=== PATIENT | female | born 1965 | race Caucasian/White ===

== ENCOUNTER 2020-05-30 13:52 | Outpatient (CLI) | payer OTHER ==
--- NOTE | 2020-05-30 14:36 | MMO ---
Left Breast MAMMO [facility] DDI LT+TYE. CLINICAL HISTORY: Patient is 54 years old and is seen for diagnostic exam. The patient has no family history of breast cancer. The patient has no personal history of cancer. VIEWS: The views performed were: left craniocaudal with tomosynthesis; left mediolateral oblique with tomosynthesis; and left mediolateral with tomosynthesis. FILMS COMPARED: The present examination has been compared to prior imaging studies performed at [facility] on 05/02/2020, and at [facility] on 03/01/2010 and 05/30/2020. This study has been interpreted with the assistance of computer-aided detection. MAMMOGRAM FINDINGS: The breast is heterogeneously dense, which could obscure a lesion on mammography. There is an irregular mass seen in the left breast at 12 o'clock. IMPRESSION: MASS IN THE LEFT BREAST IS SUSPICIOUS. AN ULTRASOUND-GUIDED BREAST BIOPSY IS RECOMMENDED. THE RESULTS OF THIS EXAM WERE SENT TO THE PATIENT. ACR BI-RADS Category 4 - Suspicious abnormality - biopsy should be considered D/W pt in person @ 2:30 pm MAMMOGRAPHY NOTE: 1. A negative mammogram report should not delay a biopsy if a dominant of clinically suspicious mass is present. 2. Approximately 10% to 15% of breast cancers are not detected by mammography. 3. Adenosis and dense breasts may obscure an underlying neoplasm. Reported by: JOSHUA WILSON MD Electonically Signed: [id number]
--- NOTE | 2020-05-30 15:26 | ULT ---
LEFT BREAST ULTRASOUND: 05/30/20 HISTORY: Abnormal mammogram of 05/02/20. FINDINGS: Correlation is made with mammograms of 05/02/20 and today. Sonographic evaluation of the cortical portion of the left breast demonstrates a 1 cm shadowing irreg ular solid mass 3 cm from the nipple, corresponding to the mammographic finding. US of the right axilla shows no abnormality. IMPRESSION: BI-RADS 4: Suspicious Abnormality - Biopsy Should Be Considered Usually requires biopsy Ultrasound guided biopsy is recommended. Discussed in person with the patient at 2:30 p.m. POS: OFF
== END 2020-05-30 13:53 | disposition home or self-care (01) ==
LOC: BICMAMMO 13:52
PROVIDERS: ATTEND Obstetrics & Gynecology
DX: R92.8 Other abnormal and inconclusive findings on diagnostic imaging of breast (principal)
CPT/HCPCS: G0279

== ENCOUNTER → 2020-06-20 | Day surgery (SDC) | payer OTHER ==
--- NOTE | 2020-06-20 13:33 | MMO ---
FILMS COMPARED: The present examination has been compared to prior imaging studies performed at [facility] on 05/02/2020, and at [facility] on 03/01/2010 and 05/30/2020. MAMMOGRAM FINDINGS: Left biopsy clip is noted slightly medial to the mass. IMPRESSION: FINDING IN THE LEFT BREAST IS CONFIRMED UTILIZING POST PROCEDURE MAMMOGRAM. Reported by: JOSHUA WILSON MD Electonically Signed: [id number]
--- NOTE | 2020-06-20 13:58 | ULT ---
Left breast mass biopsy sonographic guided HISTORY: Left breast mass. Upper inner quadrant. FINDINGS: After explaining the procedure and answering all questions, the hypoechoic mass at the 12:0 0 position right breast was visualized. Sterile technique, buffered local anesthesia, sonographic guidance, and a medial approach were used t o carefully advance a 14-gauge core biopsy needle to the level of the mass. A total of 2 samples were obtained and eventually submitted to pathology for evaluation. Localization clip was placed in the biopsy bed under sonographic control, placing the clip immediatel y medial to the mass. Patient tolerated the procedure well and was eventually dismissed in good condition. IMPRESSION : Technically successful sonographic guided biopsy left breast mass.
== END ==
LOC: BICULT 12:41
PROVIDERS: ATTEND Obstetrics & Gynecology
PROC: 0H9U3ZX Drainage of Left Breast, Percutaneous Approach, Diagnostic (ICD-10-PCS; principal; 2020-06-20)
DX: C50.212 Malignant neoplasm of upper-inner quadrant of left female breast (principal); Z17.0 Estrogen receptor positive status [ER+]
CPT/HCPCS: 19083; 88305; 88341; 88342

== ENCOUNTER 2020-09-25 12:22 | Outpatient (CLI) | payer OTHER ==
[2020-09-25 13:51] LABS: #Eosinphils 0.2 10x3/uL (0.0-0.5); #Monocytes 0.4 10x3/uL (0.0-1.1); #Neutrophils 1.9 10x3/uL (1.5-8.4); %Basophils 0.8 % (0.0-2.0); %Eosinophils 5.7 % (0.0-6.0); %Lymphocytes 35.1 % (18.0-47.0); %Monocytes 9.3 % (0.0-10.0); %Neutrophils 48.8 % (40.0-75.0); Hemoglobin 13.4 g/dL (12.0-15.5); Mean Corpuscular HGB CONC 30.9 g/dL (32.0-36.0); Mean Corpuscular Hemoglobin 28.8 pg (27.0-33.0); Mean Corpuscular Volume 92.9 fl (81.6-98.3); Mean Platelet Volume 10.8 fl (7.4-10.4); Platelet Count 261 10x3/uL (150-450); RBC Distribution Width 12.9 % (11.5-14.5); Red Blood Cell (RBC) Count 4.66 10x6/uL (3.90-5.03); White Blood Cell (WBC) Count 3.9 10x3/uL (3.5-10.5)
[2020-09-25 14:11] LABS: Anion Gap 14 mmol/L (10-20); BUN (Urea Nitrogen) 8 mg/dL (9.8-20.1); Calc. Creatinine Clearance 0 mL/min (70-130); Calcium 9.6 mg/dL (7.8-10.44); Carbon Dioxide 28 mmol/L (22-29); Chloride 104 mmol/L (98-107); Glucose 79 mg/dL (70-105); Potassium 5.1 mmol/L (3.5-5.1); Sodium 141 mmol/L (136-145)
[2020-09-26 01:55] LABS: SARS-CoV-2 PCR by NAA Not Detected (NotDetected)
== END 2020-09-25 12:23 | disposition home or self-care (01) ==
LOC: LABBT 12:22
PROVIDERS: ATTEND Specialist
DX: Z01.818 Encounter for other preprocedural examination (principal); C50.912 Malignant neoplasm of unspecified site of left female breast; Z20.822 Contact with and (suspected) exposure to COVID-19
CPT/HCPCS: 80048; 85025; 87635; 93005; 93010; U0003; U0005

== ENCOUNTER 2020-09-28 07:34 | Day surgery (SDC) | payer OTHER ==
[2020-09-27 11:50] VITALS: BMI 21.1
[2020-09-28] MEDS ORDERED: Ketorolac Tromethamine 30 MG/ML VIAL ONE (08:43)
[2020-09-28] MEDS ORDERED: Acetaminophen 500 MG TAB ONE (08:43)
[2020-09-28] MEDS ORDERED: Metoprolol Tartrate 5 MG/5 ML VIAL ONE (09:30)
[2020-09-28] MEDS ORDERED: Metoclopramide HCl 10 MG/2 ML VIAL ONE (09:30)
[2020-09-28] MEDS ORDERED: ePHEDrine 50 MG/ML VIAL ONE (09:30)
[2020-09-28] MEDS ORDERED: Lidocaine 1% PF 5 ML VIAL ONE (09:30)
[2020-09-28] MEDS ORDERED: Ondansetron PF 4 MG/2 ML Vial ONE (09:30)
[2020-09-28] MEDS ORDERED: PROPOFOL 200 MG/20 ML VIAL ONE (09:30)
[2020-09-28] MEDS ORDERED: Dexamethasone 20 MG/5 ML VIAL ONE (09:30)
[2020-09-28] MEDS ORDERED: PHENYLEPHRINE-NS 100 MCG/ML 10 ML SYRINGE ONE (09:30)
[2020-09-28] MEDS ORDERED: Midazolam HCl 2 mg/2 ml Vial ONE ×2 (10:24→12:47)
[2020-09-28] MEDS ORDERED: Isosulfan Blue 50 MG/5 ML VIAL ONE (12:25)
[2020-09-28] MEDS ORDERED: Lidocaine 1% w/Epinephrine 1:100K 20 ML VIAL ONE (12:25)
[2020-09-28] MEDS ORDERED: Bupivacaine 0.25% HCL 30 ML VIAL ONE (12:25)
[2020-09-28] MEDS ORDERED: Famotidine/PF 20 mg/2ml Vial ONE (12:38)
[2020-09-28] MEDS ORDERED: Fentanyl 100 MCG/2 ML VIAL ONE (12:47)
[2020-09-28] MEDS ORDERED: Phenylephrine 10 MG/ML VIAL ONE (14:53)
== END 2020-09-28 16:40 | disposition home or self-care (01) ==
LOC: SDC 07:34
PROVIDERS: ATTEND Specialist
PROC: 0HBU0ZZ Excision of Left Breast, Open Approach (ICD-10-PCS; principal; 2020-09-28)
PROC: 07B60ZX Excision of Left Axillary Lymphatic, Open Approach, Diagnostic (ICD-10-PCS; principal; 2020-09-28)
DX: C50.412 Malignant neoplasm of upper-outer quadrant of left female breast (principal); C77.3 Secondary and unspecified malignant neoplasm of axilla and upper limb lymph nodes; Z17.0 Estrogen receptor positive status [ER+]
CPT/HCPCS: 76098; 78195; 88307; 88342; 93005; 93010; A9541; J0690; J1100; J1885; J2250; J2370; J2405; J2704; J2765; J3010; J3490; Q9968; S0020; S0028

== ENCOUNTER 2020-10-11 09:36 | Outpatient (CLI) | payer OTHER ==
[2020-10-11 22:06] LABS: SARS-CoV-2 PCR by NAA Not Detected (NotDetected)
== END 2020-10-11 09:37 | disposition home or self-care (01) ==
LOC: LABBT 09:36
PROVIDERS: ATTEND Specialist
DX: C50.912 Malignant neoplasm of unspecified site of left female breast (principal); Z20.822 Contact with and (suspected) exposure to COVID-19
CPT/HCPCS: 87635; U0003; U0005

== ENCOUNTER 2020-10-16 10:33 | Day surgery (SDC) | payer OTHER ==
[2020-10-12 11:17] VITALS: BMI 21.0
[2020-10-16] MEDS ORDERED: Fentanyl 100 MCG/2 ML VIAL ONE (10:41)
[2020-10-16] MEDS ORDERED: Ketorolac Tromethamine 30 MG/ML VIAL ONE (11:37)
[2020-10-16] MEDS ORDERED: Acetaminophen 500 MG TAB ONE (11:37)
[2020-10-16] MEDS ORDERED: Lidocaine 1% w/Epinephrine 1:100K 20 ML VIAL ONE (12:05)
[2020-10-16] MEDS ORDERED: Bupivacaine 0.25% HCL 30 ML VIAL ONE (12:05)
[2020-10-16] MEDS ORDERED: Lidocaine 1% PF 5 ML VIAL ONE (13:32)
[2020-10-16] MEDS ORDERED: PROPOFOL 200 MG/20 ML VIAL ONE (13:32)
[2020-10-16] MEDS ORDERED: Dexamethasone 20 MG/5 ML VIAL ONE (13:32)
[2020-10-16] MEDS ORDERED: PHENYLEPHRINE-NS 100 MCG/ML 10 ML SYRINGE ONE ×2 (13:32→14:11)
[2020-10-16] MEDS ORDERED: Glycopyrrolate 0.2 MG/ML 5 ML SYRINGE ONE (13:32)
[2020-10-16] MEDS ORDERED: ePHEDrine 50 MG/ML VIAL ONE (13:32)
[2020-10-16] MEDS ORDERED: Ondansetron PF 4 MG/2 ML Vial ONE (13:32)
[2020-10-16] MEDS ORDERED: HYDROcodone/Acetaminophen 5/325 mg Tablet ONE (15:43)
== END 2020-10-16 15:52 | disposition home or self-care (01) ==
LOC: SDC 10:33
PROVIDERS: ATTEND Specialist
PROC: 0HBU0ZZ Excision of Left Breast, Open Approach (ICD-10-PCS; principal; 2020-10-16)
DX: D05.12 Intraductal carcinoma in situ of left breast (principal); R92.0 Mammographic microcalcification found on diagnostic imaging of breast
CPT/HCPCS: 88305; J0690; J1100; J1885; J2405; J2704; J3010; J3490; S0020

== ENCOUNTER 2021-04-20 14:53 | Outpatient (CLI) | payer OTHER | END 2021-04-20 14:54 | disposition home or self-care (01) | LOC: BICMAMMO 14:53 | PROVIDERS: ATTEND Internal Medicine Hematology & Oncology | DX: Z13.820 Encounter for screening for osteoporosis (principal); M85.89 Other specified disorders of bone density and structure, multiple sites; Z78.0 Asymptomatic menopausal state | CPT/HCPCS: 77080 ==

== ENCOUNTER 2022-11-11 13:02 | Outpatient (CLI) | payer OTHER | END 2022-11-11 13:03 | disposition home or self-care (01) | LOC: BICMAMMO 13:02 | PROVIDERS: ATTEND Specialist | DX: Z08 Encounter for follow-up examination after completed treatment for malignant neoplasm (principal); Z85.3 Personal history of malignant neoplasm of breast | CPT/HCPCS: 77066; G0279 ==